=== PATIENT | female | born 1980 | race Caucasian/White ===

== ENCOUNTER → 2018-03-19 09:13 | Outpatient (CLI) | payer BC, SELFPAY ==
--- NOTE | 2018-03-19 09:19 | US_ITS ---
US abdomen limited History:Epigastric pain with nausea Ordering Physician:Evgeny Perez Patient Age: 38 years Comparison:None Findings: Pancreas:Unremarkable. No obvious mass or abnormal fluid collection. No ductal dilatation Liver:No focal liver lesions demonstrated. Homogeneous echogenicity. No intrahepatic biliary ductal dilatation evident Right Kidney:Unremarkable. Normal size and echogenicity. No hydronephrosis Gallbladder:There is a 3 cm gallstone present in the fundus of the gallbladder. Common bile duct is normal at 3 mm. No gallbladder wall thickening or pericholecystic fluid. Impression: Cholelithiasis
== END ==
PROVIDERS: PCP Internal Medicine; Visit Provider Internal Medicine
DX: R10.13 Epigastric pain (principal)
CPT/HCPCS: 76705

== ENCOUNTER → 2018-04-07 14:39 | Outpatient (CLI) | payer BC, SELFPAY ==
[2018-04-07 14:56] LABS: Urine Pregnancy, HCG Qual. Negative (Negative)
== END ==
PROVIDERS: Visit Provider Surgery
DX: K80.10 Calculus of gallbladder with chronic cholecystitis without obstruction (principal)
CPT/HCPCS: 81025